=== PATIENT | male | born 1980 | race American Indian/Alaskan Native ===

== ENCOUNTER 2018-08-25 07:18 | Emergency (ER) | payer SELFPAY ==
[2018-08-25] MEDS ORDERED: NACL 0.9% 1000 ML 1,000 ML IV ONE (07:38)
[2018-08-25] MEDS ORDERED: ZOFRAN IV ONE (07:38)
[2018-08-25] MEDS ORDERED: MORPHINE IV ONE (07:39)
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
[2018-08-25 08:14] LABS: Basophils # (Auto) 0.1 K/mm3 (0.0-0.1); Basophils % (Auto) 0.5 % (0.0-1.8); Eosinophils % (Auto) 0.1 % (0.0-4.3); Hematocrit 43.4 % (35.5-45.6); Lymphocytes # (Auto) 1.5 K/mm3 (1.2-5.4); Lymphocytes % (Auto) 13.3 % (13.4-35.0); Mean Corpuscular HGB Conc 32 % (32-34); Mean Corpuscular Volume 78 fl (84-94); Monocytes # (Auto) 0.8 K/mm3 (0.0-0.8); Monocytes % (Auto) 6.9 % (0.0-7.3); Platelet Count 287 K/mm3 (140-440); Red Blood Count 5.57 M/mm3 (3.65-5.03); Red Cell Distribution Width 14.4 % (13.2-15.2)
[2018-08-25 08:28] LABS: Alanine Aminotransferase 26 units/L (7-56); Albumin 4.8 g/dL (3.9-5); BUN/Creatinine Ratio 22; Blood Urea Nitrogen 20 mg/dL (9-20); Calcium 9.5 mg/dL (8.4-10.2); Hemolysis Index 26
[2018-08-25 08:33] VITALS: BP 132/82
[2018-08-25 08:41] LABS: Bilirubin,Direct < 0.2 mg/dL (0-0.2)
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
[2018-08-25 11:14] LABS: Bilirubin,Urine NEG (Negative); Blood,Urine NEG (Negative); Color,Urine Yellow (Yellow); Mucus,Urine 1+ /HPF
== END 2018-08-25 12:15 | disposition home or self-care (01) ==
LOC: ED 07:18
DX: R10.84 Generalized abdominal pain (principal); R11.2 Nausea with vomiting, unspecified; R19.7 Diarrhea, unspecified; I10 Essential (primary) hypertension; F12.10 Cannabis abuse, uncomplicated; Z87.891 Personal history of nicotine dependence
CPT/HCPCS: 36415; 74177; 80048; 80076; 81001; 83690; 85025; 96361; 96374; 96375; 99284; J2270; J2405; J7030; Q9967

== ENCOUNTER 2020-06-05 21:19 | Emergency (ER) | payer MEDICAID ==
[2020-06-05] MEDS ORDERED: predniSONE 20 MG TAB PO ONE (22:35)
[2020-06-05] MEDS ORDERED: SULFAMETHOXAZOLE/TRIMETHOPRIM 800/160MG DS TAB PO ONE (22:35)
[2020-06-05] MEDS ORDERED: FAMOTIDINE 20 MG TAB PO ONE (22:35)
[2020-06-05 22:47] VITALS: BP 127/82
--- NOTE | 2020-06-05 22:59 | Emergency Department Report ---
ED General Adult HPI - General Chief complaint: Skin Rash Stated complaint: ITCHING FELL LIKE IM GETTING ATE Source: patient Mode of arrival: Ambulatory Limitations: No Limitations - History of Present Illness Initial comments: Patient is a 39-year-old -[place] male with a history of hypertension who presents to the ED with complaint of acute onset persistent diffuse itchy macular urticarial rashes for the last 24 hours. Patient states that he is unsure as to the etiology of the rashes and itching. Patient also complains of maculopapular painful erythematous rashes on the cheek and chin after he pulled some hair from his fu about 5 days ago. Patient denies fever, chills, nausea, vomiting, dizziness, syncope, chest pain or shortness of breath, sore throat or traumatic injury. MD Complaint: Itching; facial rashes -: Sudden, days(s) (2) Location: head Radiation: non-radiation Severity scale (0 -10): 0 Quality: burning, other (Itching) Consistency: constant Improves with: none Worsens with: none Associated Symptoms: denies other symptoms. denies: confusion, chest pain, cough, diaphoresis, fever/chills, headaches, loss of appetite, malaise, nausea/vomiting, rash, seizure, shortness of breath, syncope, weakness Treatments Prior to Arrival: none - Related Data Previous Rx's Medication Instructions Recorded Last Taken Type Naproxen [Naprosyn] 500 mg PO BID #14 tablet 08/25/18 Unknown Rx Ondansetron [Zofran Odt] 4 mg PO Q8HR PRN #14 tab.rapdis 08/25/18 Unknown Rx Amoxicillin [Amoxicillin TAB] 875 mg PO BID #14 tablet 07/25/19 Unknown Rx Ibuprofen [Motrin] 800 mg PO Q8HR #20 tablet 07/25/19 Unknown Rx Famotidine [Pepcid] 20 mg PO BID #30 tablet 06/05/20 Unknown Rx Sulfamethoxazole/Trimethoprim 1 each PO Q12H #20 tablet 06/05/20 Unknown Rx [Bactrim DS TAB] diphenhydrAMINE [Benadryl CAP] 25 mg PO Q6HR PRN #30 capsule 06/05/20 Unknown Rx predniSONE [Deltasone] 60 mg PO QDAY #15 tab 06/05/20 Unknown Rx Allergies Allergy/AdvReac Type Severity Reaction Status Date / Time No Known Allergies Allergy Unverified 08/25/18 07:25 ED Review of Systems ROS: Stated complaint: ITCHING FELL LIKE IM GETTING ATE Other details as noted in HPI Constitutional: denies: chills, fever Eyes: denies: eye pain, eye discharge, vision change ENT: denies: ear pain, throat pain Respiratory: denies: cough, shortness of breath, wheezing Cardiovascular: denies: chest pain, palpitations Endocrine: no symptoms reported Gastrointestinal: denies: abdominal pain, nausea, diarrhea Genitourinary: denies: urgency, dysuria Musculoskeletal: denies: back pain, joint swelling, arthralgia Skin: rash (Erythematous maculopapular urticarial rashes diffusely; erythematous maculopapular painful rashes on the fu and on the cheeks), change in color, change in hair/nails. denies: lesions Neurological: denies: headache, weakness, paresthesias Psychiatric: denies: anxiety, depression Hematological/Lymphatic: denies: easy bleeding, easy bruising ED Past Medical Hx - Past Medical History Previous Medical History?: Yes Hx Hypertension: Yes Hx Arthritis: Yes Additional medical history: gastroparesis - Surgical History Past Surgical History?: Yes Additional Surgical History: colostomy - Social History Smoking Status: Current Every Day Smoker Substance Use Type: Alcohol, Marijuana - Medications Home Medications: Home Medications Medication Instructions Recorded Confirmed Last Taken Type Naproxen [Naprosyn] 500 mg PO BID #14 tablet 08/25/18 Unknown Rx Ondansetron [Zofran Odt] 4 mg PO Q8HR PRN #14 tab.rapdis 08/25/18 Unknown Rx Amoxicillin [Amoxicillin TAB] 875 mg PO BID #14 tablet 07/25/19 Unknown Rx Ibuprofen [Motrin] 800 mg PO Q8HR #20 tablet 07/25/19 Unknown Rx Famotidine [Pepcid] 20 mg PO BID #30 tablet 06/05/20 Unknown Rx Sulfamethoxazole/Trimethoprim 1 each PO Q12H #20 tablet 06/05/20 Unknown Rx [Bactrim DS TAB] diphenhydrAMINE [Benadryl CAP] 25 mg PO Q6HR PRN #30 capsule 06/05/20 Unknown Rx predniSONE [Deltasone] 60 mg PO QDAY #15 tab 12/05/20 Unknown Rx ED Physical Exam - General Limitations: No Limitations General appearance: alert, in no apparent distress - Head Head exam: Present: atraumatic, normocephalic, normal inspection - Eye Eye exam: Present: normal appearance, PERRL, EOMI Pupils: Present: normal accommodation - ENT ENT exam: Present: normal exam, normal orophraynx, mucous membranes moist, TM's normal bilaterally, normal external ear exam - Neck Neck exam: Present: normal inspection, full ROM - Respiratory Respiratory exam: Present: normal lung sounds bilaterally. Absent: respiratory distress, wheezes, rhonchi, stridor, chest wall tenderness, accessory muscle use, prolonged expiratory - Cardiovascular Cardiovascular Exam: Present: regular rate, normal rhythm, normal heart sounds. Absent: systolic murmur, diastolic murmur, rubs, gallop - GI/Abdominal GI/Abdominal exam: Present: soft, normal bowel sounds. Absent: tenderness, guarding, rebound, hyperactive bowel sounds, hypoactive bowel sounds - Extremities Exam Extremities exam: Present: normal inspection, full ROM, normal capillary refill - Back Exam Back exam: Present: normal inspection, full ROM. Absent: tenderness, CVA tenderness (R), CVA tenderness (L), muscle spasm, paraspinal tenderness, vertebr al tenderness - Neurological Exam Neurological exam: Present: alert, oriented X3, CN II-XII intact, normal gait, reflexes normal - Psychiatric Psychiatric exam: Present: normal affect, normal mood - Skin Skin exam: Present: warm, dry, intact, rash (Diffuse erythematous maculopapular urticarial rashes; erythematous maculopapular tender ulcerated rashes on the fu and cheek), erythema ED Course Vital Signs 06/05/20 21:25 Temperature 98.7 F Pulse Rate 76 Respiratory 18 Rate Blood Pressure 127/82 [Left] O2 Sat by Pulse 98 Oximetry ED Medical Decision Making - Medical Decision Making This is a 39-year-old -[place] male with a history of hypertension who presents to the ED with complaint of acute onset persistent diffuse itchy macular urticarial rashes for the last 24 hours. Patient states that he is unsure as to the etiology of the rashes and itching. Patient also complains of maculopapular painful erythematous rashes on the cheek and chin after he pulled some hair from his fu about 5 days ago. In the ED, patient is alert and oriented x3 and is not in distress. Patient was treated in the ED initially for acute allergic reaction for the itching. Patient was discharged home on medications for allergies as well as for suspected folliculitis on the appearance. Patient was advised to follow-up with his primary care physician in 7 to 10 days for reevaluation or return to the ED immediately if symptoms get worse. - Differential Diagnosis Folliculitis; acute allergic reaction; urticaria; itching; abscess Critical care attestation.: If time is entered above; I have spent that time in minutes in the direct care of this critically ill patient, excluding procedure time. ED Disposition Clinical Impression: Acute folliculitis, Acute allergic reaction, Acute urticaria Disposition: TO HOME OR SELFCARE Is pt being admited?: No Does the pt Need Aspirin: No Condition: Stable Instructions: Allergies, Adult, Uuoj-xr-Yusr, Rash, Adult, Dukh-sj-Gaoz, Hives, Aezf-oe-Cogd, Folliculitis Additional Instructions: Take medication with food, drink plenty of fluids and follow-up with your primary care physician in 7 to 10 days for reevaluation. Return to the ED immediately if symptoms get worse. Prescriptions: Sulfamethoxazole/Trimethoprim [Bactrim DS TAB] 1 each PO Q12H #20 tablet diphenhydrAMINE [Benadryl CAP] 25 mg PO Q6HR PRN #30 capsule PRN Reason: Itching predniSONE [Deltasone] 60 mg PO QDAY #15 tab Famotidine [Pepcid] 20 mg PO BID #30 tablet Referrals: [facility] [Provider Group] - 7-10 days Time of Disposition: 23:00 Print Language: ARABIC
== END 2020-06-05 23:11 | disposition home or self-care (01) ==
LOC: ED 21:19
DX: T78.40XA Allergy, unspecified, initial encounter (principal); L73.8 Other specified follicular disorders; X58.XXXA Exposure to other specified factors, initial encounter
CPT/HCPCS: 99282; J7512